=== PATIENT | male | born 1995 | race African-American/Black ===

== ENCOUNTER 2019-03-11 18:01 | Emergency (ER) | payer OTHER ==
[~2019-03-11] VITALS: Ht 190.5 cm; Wt 92.0 kg
[2019-03-11] MEDS ORDERED: ACETAMINOPHEN 325 MG TAB PO ONE (18:15)
[2019-03-11] MEDS ORDERED: GI COCKTAIL 50ML BTL(HYOSCYAMINE/MAALOX/LIDOCAINE VISCOUS)(1:3:1) PO ONE (19:00)
[2019-03-11] MEDS ORDERED: IBUPROFEN 600 MG TAB PO ONE (19:00)
[2019-03-11 19:03] LABS: INFLUENZA A AMPLIFICATION NEGATIVE (NEGATIVE); INFLUENZA B AMPLIFICATION NEGATIVE (NEGATIVE)
[2019-03-11] MEDS ORDERED: MAGICMW SSP (20:12)
[2019-03-11] MEDS ORDERED: PSEU120T19 PO (20:12)
[2019-03-11 20:21] VITALS: BP 104/51
[2019-03-11 20:29] LABS: BASO % 0.3 % (0.0-1.0); EOS % 0.2 % (0.0-3.0); HEMATOCRIT 52.6 % (42.0-52.0); HEMOGLOBIN 15.7 g/dl (13.5-17.5); LYMPH # 1.3 10^3/uL (1.5-5.0); LYMPH % 11.6 % (24.0-44.0); MEAN CORPUSCULAR HEMOGLOBIN 22.7 pg (27.0-33.0); MEAN CORPUSCULAR HGB CONC 29.8 g/dl (32.0-36.5); MEAN CORPUSCULAR VOLUME 76.1 fl (80.0-96.0); MONO # 1.7 10^3/uL (0.0-0.8); MONO % 15.1 % (0.0-5.0); NEUTROPHILS # 8.3 10^3/uL (1.5-8.5); NEUTROPHILS % 72.4 % (36.0-66.0); PLATELET COUNT, AUTOMATED 214 10^3/uL (150-450); RED BLOOD COUNT 6.91 10^6/uL (4.30-6.10); WHITE BLOOD COUNT 11.5 10^3/uL (4.0-10.0)
[2019-03-11 20:49] LABS: ERYTHROCYTE SEDIMENTATION RATE 1 mm/hr (0-15)
== END 2019-03-11 20:23 | disposition home or self-care (01) ==
LOC: M ED 18:01
DX: R07.0 Pain in throat (principal); R50.9 Fever, unspecified